=== PATIENT | female | born 1990 | race Caucasian/White ===

== ENCOUNTER 2017-10-05 11:00 | Day surgery (SDC) | payer OTHER ==
[~2017-10-05] VITALS: Ht 160 cm; Wt 127.2 kg
[2017-10-05 11:39] VITALS: BP 115/78
[2017-10-05] MEDS ORDERED: LACTATED RINGERS 1,000 ML IV SCH (11:41)
[2017-10-05] MEDS ORDERED: OMEP-110 PO (11:42)
[2017-10-05 12:11] LABS: HCG UR SG 1.028 (1.003-1.030)
[2017-10-05] MEDS ORDERED: PROPOFOL 10 MG/ML, 20ML ONE (13:00)
== END 2017-10-05 15:00 ==
LOC: OUT 11:00
PROVIDERS: ATTEND Internal Medicine
DX: K21.9 Gastro-esophageal reflux disease without esophagitis (principal); E66.01 Morbid (severe) obesity due to excess calories; Z68.42 Body mass index [BMI] 45.0-49.9, adult; Z72.89 Other problems related to lifestyle
CPT/HCPCS: 43239; 81025; 88305; J2704; J7120